=== PATIENT | female | born 1940 | race Caucasian/White ===

== ENCOUNTER 2020-08-20 19:48 | Emergency (ER) | payer OTHER, MEDICAID ==
[~2020-08-20] VITALS: Ht 157.5 cm; Wt 74.8 kg
[2020-08-20 19:55] VITALS: BP 145/73
--- NOTE | 2020-08-20 19:56 | NUR ---
PT TAKEN TO BED 8 BY EMS VIA GURNEY. PT PLACED ON CARIDAC MONITOR.
--- NOTE | 2020-08-20 20:05 | NUR ---
79 y/o female BIBA on a gurney for c/o epigastric pain per EMS. On assesment she was A&O x3, reports being treated for COVID at [facility]. Has been D/C'd since 08/08/20. She voices concerns of still being (+) as she did not test negative prior to D/C. She reports dizziness, nausea and of not having a BM x 2 days. Adbdomen was round, soft and tender to touch, she reports the pain mostly in the epigastric region, nonradiating 08/02. ALLX: Codeine MEDHX: HTN and DM
--- NOTE | 2020-08-20 20:17 | NUR ---
DEANNA JOHNSON (CALLED) CALLED AND STATED IF ANY MEDICAL INFORMATION NEEDED TO CALL HER. ALSO STATED CAN POLYTECHNIC REGISTRAR MOTHER IN CASE OF D/C. [phone].
--- NOTE | 2020-08-20 20:18 | NUR ---
EKG PERFORMED AT BEDSIDE. EKG READS SINUS RHYTHM @ 78
--- NOTE | 2020-08-20 20:18 | NUR ---
EKG BEING PERFORMED BY EMT AT BEDSIDE.
--- NOTE | 2020-08-20 20:26 | NUR ---
LAB AT BEDSIDE.
[2020-08-20 20:38] LABS: BASOPHILS # (AUTO) 0.1 K/uL (0.00-0.22); EOSINOPHILS # (AUTO) 0.1 K/uL (0-0.4); EOSINOPHILS % (AUTO) 1.2 % (0.0-4.0); HEMATOCRIT 37.1 % (36-48); HEMOGLOBIN 12.6 g/dL (12.0-16.0); LYMPHOCYTES # (AUTO) 1.2 K/uL (2.5-16.5); LYMPHOCYTES % (AUTO) 22.1 % (20.5-51.1); MEAN CORPUSCULAR HEMOGLOBIN 32 pg (27-31); MEAN CORPUSCULAR HGB CONC 34 g/dL (33-37); MONOCYTES # (AUTO) 0.5 K/uL (0.8-1.0); MONOCYTES % (AUTO) 9.5 % (1.7-9.3); NEUTROPHILS # (AUTO) 3.6 K/uL (1.8-7.7); NEUTROPHILS % (AUTO) 66.2 % (42.2-75.2); PLATELET COUNT (AUTO) 317 K/uL (140-450); RED BLOOD CELL COUNT(AUTO) 3.91 MIL/uL (4.20-5.40); RED CELL DISTRIBUTION WIDTH 13.8 % (11.6-13.7); WHITE BLOOD COUNT (AUTO) 5.4 K/uL (4.8-10.8)
--- NOTE | 2020-08-20 20:48 | NUR ---
ER MD Paula at bedside evaluating patient.
[2020-08-20] MEDS ORDERED: ONDANSETRON 4 MG/2 ML VIAL IVP ONE (20:55)
[2020-08-20] MEDS ORDERED: FAMOTIDINE 20 MG TAB PO ONE (20:55)
[2020-08-20] MEDS ORDERED: ALUMINUM HYD/MAG/SIMETHICONE 30 ML UDC PO ONE (20:55)
[2020-08-20] MEDS ORDERED: ACETAMINOPHEN EXTRA STRENGTH 500 MG TAB PO ONE (21:00)
--- NOTE | 2020-08-20 21:00 | NUR ---
IV placed on Right AC, 18 G. IV site patent and blood return noted.
--- NOTE | 2020-08-20 21:07 | NUR ---
Pt signed consent of CT abdomen/pelvis w/contrast.
[2020-08-20 21:08] LABS: ALBUMIN 3.3 g/dL (3.4-5.0); ANION GAP 13.7 (8-16); ASPARTATE AMINOTRANSFERASE 17 U/L (15-37); CARBON DIOXIDE 26.6 mmol/L (21-32); CHLORIDE 100 mmol/L (98-107); CREATININE 1.1 mg/dL (0.6-1.3); LIPASE 191 U/L (73-393); POTASSIUM 4.3 mmol/L (3.5-5.1); SODIUM SERUM 136 mmol/L (136-145); TOTAL BILIRUBIN 0.3 mg/dL (0.0-1.0); UREA NITROGEN, BLOOD 16 mg/dL (7-18)
[2020-08-20 21:40] LABS: GLUCOSE 159 mg/dL (74-106)
--- NOTE | 2020-08-20 22:20 | NUR ---
Placed Pt in a gown.
--- NOTE | 2020-08-20 22:31 | NUR ---
Patient appears to be resting comfortably in bed. Vital Signs within normal limits. Respirations even and unlabored. On bus driver/monitor, awaiting for CT of the abdomen and pelvis.
--- NOTE | 2020-08-20 22:53 | NUR ---
PT TAKEN TO CT VIA W/C
--- NOTE | 2020-08-20 23:15 | NUR ---
PT RETURNED FROM CT SCAN. PLACED ON CHARGER OPERATOR.
--- NOTE | 2020-08-20 23:20 | NUR ---
PT ASSISTED TO BEDSIDE COMODE.
[2020-08-20] MEDS ORDERED: NACL 0.9% 500 ML IV ONE (23:35)
--- NOTE | 2020-08-21 00:20 | NUR ---
ER MD Paula at bedside with patient.
--- NOTE | 2020-08-21 00:45 | NUR ---
Assisted patient to bedside comode.
--- NOTE | 2020-08-21 01:08 | NUR ---
IV removed, catheter intact and site benign. Applied folded 4x4 gauze and tape to stop bleeding.
--- NOTE | 2020-08-21 01:09 | NUR ---
Called Jacquie Ulloa regarding patient and possible discharge. No answer at this time voicemail was left.
--- NOTE | 2020-08-21 01:47 | NUR ---
Patient appears to be resting comfortably in bed. Vital Signs within normal limits. Respirations even and unlabored.
[2020-08-21 02:10] VITALS: BP 128/77
--- NOTE | 2020-08-21 02:10 | NUR ---
Patient discharged with v/s stable. Written and verbal after care instructions given and explained. Patient alert, oriented and verbalized understanding of instructions. Wheel Chair Assisted with steady gait. All questions addressed prior to discharge. ID band removed. Patient advised to follow up with PMD. Rx of Pepcid & Maalox given. Patient educated on indication of medication including possible reaction and side effects. Opportunity to ask questions provided and answered.
--- NOTE | 2020-08-22 06:09 | NUR ---
late entry------ s/w primary nurse Thom regarding end times, as follows; NS Bolus 0.9%, end time: 54
== END 2020-08-21 02:10 | disposition home or self-care (01) ==
LOC: MED 19:48
DX: R10.13 Epigastric pain (principal); Q40.1 Congenital hiatus hernia; E11.9 Type 2 diabetes mellitus without complications; I10 Essential (primary) hypertension; Z88.5 Allergy status to narcotic agent; Z90.49 Acquired absence of other specified parts of digestive tract
CPT/HCPCS: 36415; 74177; 80053; 83690; 84484; 85025; 93005; 96361; 96374; 99285; J2405; J7030; Q9967

== ENCOUNTER 2023-11-24 09:20 | Emergency (ER) | payer MEDICARE, MEDICAID ==
[~2023-11-24] VITALS: Ht 160 cm; Wt 72.6 kg
[2023-11-24 09:29] VITALS: BP 131/54; PULSE 79; RESP 16; TEMP 98.5; O2SAT 97
[2023-11-24] MEDS ORDERED: cefTRIAXone 1,000 MG in DEXT 5% MINI-BAG PLUS 50 ML IV ONE (10:15)
[2023-11-24] MEDS ORDERED: NACL 0.9% 1,000 ML IV SCH (10:15)
[2023-11-24] MEDS ORDERED: cefTRIAXone 1,000 MG VIAL ONE (11:00)
[2023-11-24 11:21] LABS: BASOPHILS # (AUTO) 0.1 K/uL (0.00-0.22); BASOPHILS % (AUTO) 0.7 % (0.0-2.0); EOSINOPHILS % (AUTO) 0.1 % (0.0-4.0); HEMATOCRIT 37.6 % (36-48); LYMPHOCYTES # (AUTO) 0.3 K/uL (2.5-16.5); LYMPHOCYTES % (AUTO) 3.7 % (20.5-51.1); MEAN CORPUSCULAR HEMOGLOBIN 32 pg (27-31); MEAN CORPUSCULAR HGB CONC 35 g/dL (33-37); MEAN CORPUSCULAR VOLUME 93.3 fL (80-94); MONOCYTES # (AUTO) 0.4 K/uL (0.8-1.0); MONOCYTES % (AUTO) 4.9 % (1.7-9.3); NEUTROPHILS # (AUTO) 7.2 K/uL (1.8-7.7); NEUTROPHILS % (AUTO) 90.6 % (42.2-75.2); PLATELET COUNT (AUTO) 196 K/uL (140-450); RED BLOOD CELL COUNT(AUTO) 4.03 MIL/uL (4.20-5.40); WHITE BLOOD COUNT (AUTO) 7.9 K/uL (4.8-10.8)
[2023-11-24 11:31] LABS: APPEARANCE,URINE CLEAR (CLEAR); BILIRUBIN,URINE NEGATIVE (NEGATIVE); BLOOD, URINE NEGATIVE (NEGATIVE); COLOR,URINE YELLOW (YELLOW); LEUKOCYTE ESTERASE ,URINE NEGATIVE (NEGATIVE); NITRITE, URINE NEGATIVE (NEGATIVE); PROTEIN,URINE TRACE (NEGATIVE); UGLUCOSE NEGATIVE (NEGATIVE); UROBILINOGEN,URINE 0.2 EU/dL (0.2 - 1)
[2023-11-24 11:35] LABS: ANION GAP 10.1 (8-16); CALCIUM 8.4 mg/dL (8.5-10.1); CARBON DIOXIDE 28.8 mmol/L (21-32); CHLORIDE 99 mmol/L (98-107); CREATININE 0.9 mg/dL (0.6-1.3); GLUCOSE 133 mg/dL (74-106); POTASSIUM 3.9 mmol/L (3.5-5.1); SODIUM SERUM 134 mmol/L (136-145); UREA NITROGEN, BLOOD 14 mg/dL (7-18)
[2023-11-24 11:44] LABS: LACTIC ACID 1.3 mmol/L (0.4-2.0)
[2023-11-24] MEDS ORDERED: MORPHINE SULFATE 4 MG/ML SYR IVP ONE (12:05)
[2023-11-24 13:10] VITALS: BP 121/48; PULSE 84; RESP 21; O2SAT 91
== END 2023-11-24 13:27 | disposition home or self-care (01) ==
LOC: MED 09:20
DX: R51.9 Headache, unspecified (principal); E11.9 Type 2 diabetes mellitus without complications; K21.9 Gastro-esophageal reflux disease without esophagitis; I10 Essential (primary) hypertension; F32.9 Major depressive disorder, single episode, unspecified; Z98.890 Other specified postprocedural states; Z88.5 Allergy status to narcotic agent; W01.198A Fall on same level from slipping, tripping and stumbling with subsequent striking against other object, initial encounter; Y92.89 Other specified places as the place of occurrence of the external cause; Y93.89 Activity, other specified; Y99.8 Other external cause status
CPT/HCPCS: 36415; 70450; 71045; 80048; 81003; 83605; 83880; 84484; 85025; 87040; 87086; 93005; 96365; 96375; 99285; J0696; J2270; J7030

== ENCOUNTER 2024-08-11 19:30 | Emergency (ER) | payer MEDICARE, MEDICAID ==
[~2024-08-11] VITALS: Ht 160 cm; Wt 77.1 kg
[2024-08-11 19:31] VITALS: BP 190/86; PULSE 84; RESP 18; TEMP 98.2; O2SAT 98
[2024-08-11 20:28] LABS: BASOPHILS % (AUTO) 0.4 % (0.0-2.0); EOSINOPHILS # (AUTO) 0.1 K/uL (0-0.4); EOSINOPHILS % (AUTO) 0.8 % (0.0-4.0); HEMOGLOBIN 13.3 g/dL (12.0-16.0); LYMPHOCYTES # (AUTO) 1.6 K/uL (2.5-16.5); LYMPHOCYTES % (AUTO) 20.7 % (20.5-51.1); MEAN CORPUSCULAR HEMOGLOBIN 31 pg (27-31); MEAN CORPUSCULAR HGB CONC 33 g/dL (33-37); MEAN CORPUSCULAR VOLUME 92.8 fL (80-94); MONOCYTES # (AUTO) 0.7 K/uL (0.8-1.0); MONOCYTES % (AUTO) 8.6 % (1.7-9.3); NEUTROPHILS # (AUTO) 5.5 K/uL (1.8-7.7); NEUTROPHILS % (AUTO) 69.5 % (42.2-75.2); PLATELET COUNT (AUTO) 235 K/uL (140-450); RED BLOOD CELL COUNT(AUTO) 4.31 MIL/uL (4.20-5.40); RED CELL DISTRIBUTION WIDTH 12.9 % (11.6-13.7); WHITE BLOOD COUNT (AUTO) 7.9 K/uL (4.8-10.8)
[2024-08-11 20:31] VITALS: TEMP 98.2
[2024-08-11] MEDS: NACL 0.9% 1,000 ML IV SCH (20:36)
[2024-08-11] MEDS: KETOROLAC 30 MG/ML VIAL IVP ONE (20:37)
[2024-08-11] MEDS: ONDANSETRON 4 MG/2 ML VIAL IVP ONE (20:38)
[2024-08-11 20:46] LABS: ANION GAP 10.9 (8-16); CALCIUM 8.5 mg/dL (8.5-10.1); CARBON DIOXIDE 30.2 mmol/L (21-32); CHLORIDE 99 mmol/L (98-107); CREATININE 0.9 mg/dL (0.6-1.3); GLUCOSE 99 mg/dL (74-106); POTASSIUM 4.1 mmol/L (3.5-5.1); SODIUM SERUM 136 mmol/L (136-145); UREA NITROGEN, BLOOD 14 mg/dL (7-18)
[2024-08-11 20:51] LABS: ALBUMIN 3.5 g/dL (3.4-5.0); BILIRUBIN,DIRECT 0.1 mg/dL (0.0-0.3); TOTAL BILIRUBIN 0.5 mg/dL (0.0-1.0)
[2024-08-11 20:55] LABS: APPEARANCE,URINE CLEAR (CLEAR); BILIRUBIN,URINE NEGATIVE (NEGATIVE); BLOOD, URINE NEGATIVE (NEGATIVE); COLOR,URINE YELLOW (YELLOW); LEUKOCYTE ESTERASE ,URINE NEGATIVE (NEGATIVE); NITRITE, URINE NEGATIVE (NEGATIVE); PH,URINE 7.5 (5.0-9.0); PROTEIN,URINE NEGATIVE (NEGATIVE); UGLUCOSE NEGATIVE (NEGATIVE); UROBILINOGEN,URINE 0.2 EU/dL (0.2 - 1)
[2024-08-11 23:16] VITALS: BP 162/74; PULSE 64; RESP 14; O2SAT 97
[2024-08-12] MEDS ORDERED: ONDA8TAB87 PO (00:01)
[2024-08-12] MEDS ORDERED: IBUP-2213 PO (00:01)
== END 2024-08-12 00:30 | disposition home or self-care (01) ==
LOC: MED 19:30
DX: R51.9 Headache, unspecified (principal); R10.12 Left upper quadrant pain; R11.2 Nausea with vomiting, unspecified; R30.0 Dysuria; E11.9 Type 2 diabetes mellitus without complications; K21.9 Gastro-esophageal reflux disease without esophagitis; I10 Essential (primary) hypertension; Z98.890 Other specified postprocedural states; Z88.5 Allergy status to narcotic agent
CPT/HCPCS: 36415; 70450; 74176; 80048; 80076; 81003; 83690; 85025; 96361; 96374; 96375; 99285; J1885; J2405; J7030